=== PATIENT | female | born 1995 | race Caucasian/White ===

== ENCOUNTER 2017-12-10 22:56 | Emergency (ER) | payer OTHER ==
[2017-12-11] MEDS: KETOROLAC 60 MG INJ IM (01:37)
== END 2017-12-11 01:59 | disposition home or self-care (01) ==
LOC: FTE 22:56
DX: J20.9 Acute bronchitis, unspecified (principal)
CPT/HCPCS: 96372; 99284-25; J1885

== ENCOUNTER 2018-04-26 02:39 | Emergency (ER) | payer OTHER ==
[2018-04-26 03:27] LABS: URINE BLOOD (Dip) POC Negative (NEGATIVE); URINE GLUCOSE (Dip) POC Negative (NEGATIVE); URINE KETONES (Dip) POC Negative (NEGATIVE); URINE LEUKOCYTE EST (Dip) POC Trace (NEGATIVE); URINE NITRITE (Dip) POC Negative (NEGATIVE); URINE TOTAL PROTEIN POC Negative (NEGATIVE)
[2018-04-26] MEDS: ALBUTEROL 0.083% (NEB) 2.5 MG/3 ML AMP NEB (03:30)
[2018-04-26] MEDS: IPRATROPIUM (NEB) 0.5 MG/2.5 ML AMP NEB (03:30)
[2018-04-26] MEDS: DIPHENHYDRAMINE 25 MG CAP PO (03:47)
[2018-04-26] MEDS: KETOROLAC 15 MG INJ IM (03:49)
== END 2018-04-26 04:30 | disposition home or self-care (01) ==
LOC: FTE 02:39
DX: J06.9 Acute upper respiratory infection, unspecified (principal); Z87.891 Personal history of nicotine dependence
CPT/HCPCS: 81003; 81025; 87400; 94664; 96372; 99284-25

== ENCOUNTER 2019-01-14 16:51 | Emergency (ER) | payer OTHER | END 2019-01-14 19:28 | disposition home or self-care (01) | LOC: FTE 16:51 | DX: H66.92 Otitis media, unspecified, left ear (principal); J30.9 Allergic rhinitis, unspecified | CPT/HCPCS: 99283; Z7502 ==

== ENCOUNTER 2019-02-05 19:46 | Emergency (ER) | payer OTHER | END 2019-02-06 01:00 | disposition home or self-care (01) | LOC: FTE 02-06 01:00 | DX: J40 Bronchitis, not specified as acute or chronic (principal); F17.210 Nicotine dependence, cigarettes, uncomplicated | CPT/HCPCS: 71045; 99283-25 ==